=== PATIENT | female | born 1945 ===

== ENCOUNTER 2023-03-28 14:42 | Emergency (ER) | payer MEDICARE ==
[~2023-03-28] VITALS: Ht 154.9 cm; Wt 50.0 kg
[2023-03-28 14:44] VITALS: BP 146/67; PULSE 60; RESP 16; TEMP 98.5
[2023-03-28] MEDS ORDERED: AMLO-257 PO (14:46)
== END 2023-03-28 17:39 | disposition left against medical advice (07) ==
LOC: EMS 14:44
DX: R10.13 Epigastric pain (principal); R11.0 Nausea; I10 Essential (primary) hypertension
CPT/HCPCS: 93005; 99283